=== PATIENT | female | born 1945 | race Caucasian/White ===

== ENCOUNTER 2018-04-23 12:46 | Emergency (ER) | payer OTHER ==
[~2018-04-23] VITALS: Ht 154.9 cm; Wt 63.5 kg
[2018-04-23 13:06] LABS: HEMATOCRIT 39.9 % (37.0-47.0); HEMOGLOBIN 13.6 gm/dL (12.0-15.0); MCH 32.1 pg (26.0-34.0); MCV 94.3 fL (80.0-100.0); RBC 4.23 mil/uL (4.20-5.00); RDW 12.8 % (10.5-14.5); WBC 4.9 thou/uL (4.0-11.0)
[2018-04-23 13:17] LABS: CALCIUM 9.6 mg/dL (8.5-10.1); POTASSIUM 4.6 mmol/L (3.5-5.1)
[2018-04-23 14:15] LABS: URINE BILIRUBIN NEGATIVE (Negative); URINE BLOOD NEGATIVE (Negative); URINE CLARITY CLEAR; URINE COLOR YELLOW; URINE GLUCOSE-RANDOM* NEGATIVE (Negative); URINE KETONES 1+ (Negative); URINE LEUKOCYTES-REFLEX NEGATIVE (Negative); URINE NITRITE-REFLEX NEGATIVE (Negative); URINE PROTEIN (DIPSTICK) 1+ (Negative); URINE SPECIFIC GRAVITY 1.025 (1.005-1.035); URINE UROBILINOGEN 0.2 E.U./dl (0.2-1.0)
[2018-04-23 14:34] LABS: SQUAMOUS 4-10 Moderate /LPF (0-3)
[2018-04-23 14:35] LABS: CRYSTALS None Seen /LPF (None Seen); URINE RBC 0-2 Rare /HPF (0-2); URINE WBC-REFLEX 0-5 Rare /HPF (0-5)
[2018-04-23 14:36] LABS: CASTS None Seen /LPF (None Seen); MUCUS 4-6 Moderate strn/LPF (None Seen)
[2018-04-23 20:10] VITALS: BP 132/59
== END 2018-04-23 20:13 ==
LOC: ER 12:46
PROVIDERS: Emergency Medicine
DX: R50.9 Fever, unspecified (principal); I10 Essential (primary) hypertension; E03.9 Hypothyroidism, unspecified; G20 Parkinson's disease; F02.80 Dementia in other diseases classified elsewhere, unspecified severity, without behavioral disturbance, psychotic disturbance, mood disturbance, and anxiety; Z86.73 Personal history of transient ischemic attack (TIA), and cerebral infarction without residual deficits; W18.39XA Other fall on same level, initial encounter; Y92.89 Other specified places as the place of occurrence of the external cause; Y93.89 Activity, other specified; Y99.8 Other external cause status

== ENCOUNTER 2019-06-04 05:53 | Emergency (ER) | payer OTHER ==
[~2019-06-04] VITALS: Ht 152.4 cm; Wt 59.0 kg
[2019-06-04 06:25] LABS: ABSOLUTE NEUTROPHILS 11.1 thou/uL (1.4-8.2); BASOPHILS 0.2 % (0.0-2.0); EOSINOPHILS 0.1 % (0.0-3.0); HEMATOCRIT 40.2 % (37.0-47.0); HEMOGLOBIN 13.1 gm/dL (12.0-15.0); LYMPHOCYTES 5.6 % (24.0-44.0); MCH 31.6 pg (26.0-34.0); MCHC 32.6 g/dL (28.0-37.0); MCV 97.1 fL (80.0-100.0); PLATELET COUNT 248 thou/uL (150-400); POLYS 91.1 % (36.0-66.0); RBC 4.14 mil/uL (4.20-5.00); RDW 13.2 % (10.5-14.5); WBC 12.2 thou/uL (4.0-11.0)
[2019-06-04 06:34] LABS: CALCIUM 9.8 mg/dL (8.5-10.1); CREATININE 0.7 mg/dL (0.6-1.0); POTASSIUM 3.8 mmol/L (3.5-5.1)
[2019-06-04] MEDS ORDERED: FEVERALL120 MG RECTAL (06:46)
[2019-06-04] MEDS ORDERED: ACIDOPHILUS1 EAC4 PO (06:47)
[2019-06-04] MEDS ORDERED: ACETAMINOPHEN PO (06:49)
[2019-06-04] MEDS ORDERED: ATIVAN0.5 MG PO ×2 (06:50→07:00)
[2019-06-04] MEDS ORDERED: LIPITOR10 MG PO (06:52)
[2019-06-04] MEDS ORDERED: DULCOLAX5 MG PO (06:54)
[2019-06-04] MEDS ORDERED: SINEMET 25-1001 EAC1 PO (06:55)
[2019-06-04] MEDS ORDERED: VITAMIN D31000 UNIT PO (06:56)
[2019-06-04] MEDS ORDERED: COLACE100 MG PO (06:57)
[2019-06-04] MEDS ORDERED: CLONIDINE0.1 PO (06:57)
[2019-06-04] MEDS ORDERED: DULCOLAX10 MG RECTAL (06:58)
[2019-06-04] MEDS ORDERED: COLACE 100 MG100 MG PO (06:58)
[2019-06-04] MEDS ORDERED: LEXAPRO5 MG PO (06:59)
[2019-06-04] MEDS ORDERED: GLYCOLAX119 GM PO (06:59)
[2019-06-04] MEDS ORDERED: OLANZAPINE2.5 MG PO (07:01)
[2019-06-04] MEDS ORDERED: REMERON15 MG PO (07:01)
[2019-06-04] MEDS ORDERED: ROPINIROLE HCL2 MG PO (07:02)
[2019-06-04] MEDS ORDERED: SENNA8.6 MG PO (07:02)
[2019-06-04] MEDS ORDERED: OYSTER SHELL 51 EACH PO (07:02)
[2019-06-04 08:09] LABS: URINE BILIRUBIN NEGATIVE (Negative); URINE BLOOD NEGATIVE (Negative); URINE CLARITY CLEAR; URINE COLOR YELLOW; URINE GLUCOSE-RANDOM* NEGATIVE (Negative); URINE KETONES NEGATIVE (Negative); URINE LEUKOCYTES-REFLEX NEGATIVE (Negative); URINE NITRITE-REFLEX NEGATIVE (Negative); URINE PROTEIN (DIPSTICK) NEGATIVE (Negative); URINE UROBILINOGEN 0.2 E.U./dl (0.2-1.0)
--- NOTE | 2019-06-04 11:59 | EKG ---
[facility] [place] [address] ELECTROCARDIOGRAM REPORT Name: LUCIANA OSHEA Room #: [facility]#: [id number] ������������������ Admission: 06/04/19 ������������������ Attend Phys: Discharge: ������������������ Date of : 49 Report #: [id number] ����������������������������������������������������������������� [id number] THIS REPORT FOR: //name// [facility] ED Test Date: 2019-06-04 Test Time: 06:01:29 Pat Name: LUCIANA OSHEA Department: Room: Gender: F First Aid Instructor: HAYLEY : 1945 Requested By: Audra Marie Order Number: [id number] MD: Catrachito Mooney Measurements Intervals [place] Rate: 57 P: 0 [place]: 126 QRS: -9 QRSD: 111 T: -13 QT: 442 QTc: 431 Interpretive Statements Sinus bradycardia Probable anteroseptal infarct, old Abnrm T, consider ischemia, lateral leads No previous ECG available for comparison Electronically Signed On 06-04-2019 11:59:10 CDT by Catrachito Mooney [email or web address] ��������������������������������������������� <ELECTRONICALLY SIGNED> ���������������������������������������� By: Catrachito Mooney MD, [facility] ��������������������������������������������� 06/04/19 1159 D: 09/600 0 Catrachito Mooney MD, FACC /EPI
[2019-06-04 12:56] VITALS: BP 165/64
== END 2019-06-04 14:09 ==
LOC: ER 05:53
PROVIDERS: Emergency Medicine
DX: S00.83XA Contusion of other part of head, initial encounter (principal); S00.33XA Contusion of nose, initial encounter; S40.012A Contusion of left shoulder, initial encounter; R60.0 Localized edema; I10 Essential (primary) hypertension; E03.9 Hypothyroidism, unspecified; G20 Parkinson's disease; F03.90 Unspecified dementia, unspecified severity, without behavioral disturbance, psychotic disturbance, mood disturbance, and anxiety; Z86.73 Personal history of transient ischemic attack (TIA), and cerebral infarction without residual deficits; Z88.6 Allergy status to analgesic agent; Z88.2 Allergy status to sulfonamides; Z88.8 Allergy status to other drugs, medicaments and biological substances; W18.39XA Other fall on same level, initial encounter; Y93.89 Activity, other specified; Y92.129 Unspecified place in nursing home as the place of occurrence of the external cause; Y99.8 Other external cause status

== ENCOUNTER 2019-09-12 22:26 | Inpatient (IN) | payer OTHER ==
[~2019-09-12] VITALS: Ht 160 cm; Wt 35.4 kg
[~2019-09-12 22:26] MED LIST: ACETAMINOPHEN PO; ACIDOPHILUS1 EAC4 PO; ATIVAN0.5 MG PO; CLONIDINE0.1 PO; COLACE 100 MG100 MG PO; COLACE100 MG PO; DULCOLAX10 MG RECTAL; DULCOLAX5 MG PO; FEVERALL120 MG RECTAL; GLYCOLAX119 GM PO; LEXAPRO5 MG PO; LIPITOR10 MG PO; OLANZAPINE2.5 MG PO; OYSTER SHELL 51 EACH PO; REMERON15 MG PO; ROPINIROLE HCL2 MG PO; SENNA8.6 MG PO; SINEMET 25-1001 EAC1 PO; VITAMIN D31000 UNIT PO
[2019-09-12 22:46] VITALS: BP 128/88
[2019-09-12 23:00] LABS: URINE BILIRUBIN NEGATIVE (Negative); URINE BLOOD NEGATIVE (Negative); URINE CLARITY SL CLOUDY; URINE COLOR YELLOW; URINE GLUCOSE-RANDOM* NEGATIVE (Negative); URINE KETONES NEGATIVE (Negative); URINE PROTEIN (DIPSTICK) NEGATIVE (Negative); URINE UROBILINOGEN 0.2 E.U./dl (0.2-1.0)
[2019-09-12 23:03] LABS: URINE LEUKOCYTES-REFLEX 1+ (Negative); URINE NITRITE-REFLEX POSITIVE (Negative)
[2019-09-12 23:18] LABS: SQUAMOUS 0-3 Few /LPF (0-3); URINE RBC 3-10 Few /HPF (0-2)
[2019-09-12 23:19] LABS: CALCIUM OXALATE 0-3 Few /LPF (None Seen); CASTS None Seen /LPF (None Seen); MUCUS 0-3 Light strn/LPF (None Seen)
[2019-09-13 00:02] LABS: BASOPHILS 0.4 % (0.0-2.0); EOSINOPHILS 0.2 % (0.0-3.0); HEMATOCRIT 38.8 % (37.0-47.0); HEMOGLOBIN 12.4 gm/dL (12.0-15.0); LYMPHOCYTES 8.2 % (24.0-44.0); MCH 32.6 pg (26.0-34.0); PLATELET COUNT 213 thou/uL (150-400); POLYS 87.2 % (36.0-66.0); RBC 3.81 mil/uL (4.20-5.00); RDW 13.8 % (10.5-14.5); WBC 10.4 thou/uL (4.0-11.0)
[2019-09-13 00:12] LABS: ANION GAP 7 mmol/L (7-16); BUN 23 mg/dL (7-18); CALCIUM 8.9 mg/dL (8.5-10.1); CHLORIDE 109 mmol/L (98-107); CO2 26 mmol/L (21-32); CREATININE 0.4 mg/dL (0.6-1.0); GLUCOSE 131 mg/dL (74-106); POTASSIUM 5.1 mmol/L (3.5-5.1); SODIUM 142 mmol/L (136-145)
[2019-09-13 00:21] LABS: MAGNESIUM 1.8 mg/dL (1.8-2.4); TROPONIN-I <0.06 ng/mL (<0.06)
[2019-09-13 03:15] VITALS: BP 167/80
--- NOTE | 2019-09-13 03:16 | NUR ---
HANDOFF REPORT SENT TO 3[facility]
[2019-09-13 03:40] VITALS: BP 167/80
--- NOTE | 2019-09-13 05:46 | NUR ---
Patient arrived at 3W around 0430. Patient is currently non-communicative and she did not arrive with family/friends/DPOA. Admission documetation completed as best as possible. Patient is wearing SCDs; fall precautions are in place. Patient was cleaned and an external female catheter was placed. The patient has two open wounds: one on her sacral area and one on her left lower back. The wounds were photographed and documented. Ptient's HR dipped into the 40s frequently, running from the 40s to the 70s. Nursing will continue to monitor.
[2019-09-13 07:22] VITALS: BP 173/75
--- NOTE | 2019-09-13 07:40 | NUR ---
chart review, pt in bed eye closed, open mouth breathing. per chart review, pt lives at [facility]. will follow up with [facility] and vickie bee contact [phone].
--- NOTE | 2019-09-13 08:58 | NUR ---
WOUND CARE CONSULT pt drowsy, but cooperative, sacral stage 2 pressure wound, periwound area david, scant pinkish drainage, open ulcer r buttocks scant pinkish drainage, photos taken earlier this am, foam drsg in place, see process intervention for details RECOMMENDATIONS will order low air loss pump for bed, zguard to both wounds daily, cover w/ border foam drsg daily and prn, public health staff nurse informed
--- NOTE | 2019-09-13 10:06 | EKG ---
[place] [address] [address] [facility] [place] [address] ELECTROCARDIOGRAM REPORT Name: LUCIANA OSHEA Laz Room #: 351-P ADM IN M.R.#: [id number] Admission: 09/13/19 Attend Phys: Jessica Bruce MD Discharge: Date of : 49 Report #: [id number] THIS REPORT FOR: //name// [facility] ED Test Date: 2019-09-12 Test Time: 22:52:15 Pat Name: LUCIANA OSHEA Department: Room: [facility] Gender: F Deaf Teacher: [facility] : 1945 Requested By: Reji Barrera Order Number: [id number] MD: Catrachito Mooney Measurements Intervals [place] Rate: 68 P: PA: QRS: -5 QRSD: 94 T: -11 QT: 400 QTc: 426 Interpretive Statements Sinus rhythm Abnormal R-wave progression, early transition Nonspecific ST and T wave abnormality Compared to ECG 06/04/2019 06:01:29 Nonspecific change in the ST and T-wave segments Electronically Signed On 09-13-2019 10:05:54 BRUSH OPERATOR by Catrachito Mooney [email or web address] <ELECTRONICALLY SIGNED> By: Catrachito Mooney MD, [facility] 09/13/19 1005 51 51 Catrachito Mooney MD, [facility] /EPI
--- NOTE | 2019-09-13 15:45 | NUR ---
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 ROOM AIR, POSITIONED FROM SIDE TO SIDE TO ALLOW PT TO TOLERATE HER OWN SALIVA. INCONTINENT URINE WITH USE OF EXTERNAL FEMALE CATHETER. DR. BARRERA PRESENT TODAY TO SEE PT AND UPDATE ORDERS. PT NOT PROGRESSING.
--- NOTE | 2019-09-13 15:46 | NUR ---
REPORT GIVEN TO MADONNA MCKEON. PT TRANSFERRED IN BED TO MED/[facility]UR[facility] RM #[id number].
[2019-09-13 18:12] VITALS: BP 156/95
[2019-09-13 19:20] VITALS: BP 155/67
--- NOTE | 2019-09-13 19:33 | NUR ---
Pt was transferred from 3W approx 1600. Pt nonverbal. Q2h turn. Incontinent of B&B. Per report, pt unable to swallow. Does not appear in any pain. Opens eyes with stimuli. Fall precautions in place. Report given to alma PEACOCK.
[2019-09-14 02:30] VITALS: BP 146/66
--- NOTE | 2019-09-14 02:38 | NUR ---
ASSESSMENT COMPLETED.PT ALERT,IN NO DISTRESS.PT ABLE TO ANSWER YES OR NO ANSWER.PT WAS ABLE TO EAT SOME PUDDING AND THIN LIQUIDS BUT OBSERVED PT COUGHING AFTER DRINKING THE THIN LIQUIDS SO,SHE WAS OFFERED THICKNED AND SHE DID WELL WITH IT.INCONTINENT OF B&B,PERICARE DONE WITH EACH CHANGE. PT RESTING ON HER BED AT THIS TIME.FALL PREACUTIONS IN PLACE.CALL LIGHT WITHIN REACH.
[2019-09-14 09:28] VITALS: BP 157/71
--- NOTE | 2019-09-14 10:05 | NUR ---
PT CARE ASSUMED AT 0700. PT IS VERY LETHARGIC. IV PATENT WITH NO REDNESS OR EDEMA. IV IS STAT LOCKED. SPEECH THERAPY IN PLACE FOR EVALUATION. PT IS Q2 TURNS. PT IS NON VERBAL. AIRLOSS PUMP IN PLACE. PT TAKES MEDS WHOLE WITH PUDDING. AND HEAD ALL TH EWAY ELEVATED. PT COMES FROM [facility]. MD INFORMED OF URINE CULTURE RESULTS AND BP OF 157/71 AFTER RECEIVING CLONIDINE DOSAGE. AWAITING FURTHER ORDERS. BED IS IN LOW POSITION, LOCKED WITH BED ALARM IN PLACE. CALL LIGHT IN REACH.
[2019-09-14 12:12] VITALS: BP 157/71
[2019-09-14 17:39] VITALS: BP 141/63
[2019-09-14 20:01] VITALS: BP 152/67
--- NOTE | 2019-09-15 02:52 | NUR ---
ASSUMED PT CARE AT 1900. OXYGEN SAT AT 87%, PUT ON 2 LITERS NC, WILL CONTINUE TO MONITOR. FEMALE EXTERNAL CATHETER PLACED. HAD TROUBLE GETTING PT TO TAKE PILLS, DOES WELL CRUSHED WITH APPLESAUCE, BUT REQUIRES A LOT OF TIME TO GET HER TO OPEN HER MOUTH. SLEEPING MOST OF SHIFT, OCCASIONALLY OPENS EYES WHEN INTERVENTIONS ARE BEING DONE.
[2019-09-15 04:29] VITALS: BP 149/80
[2019-09-15 07:20] VITALS: BP 161/72
[2019-09-15 10:07] VITALS: BP 145/74
--- NOTE | 2019-09-15 10:21 | H ---
[facility] [place] [address] HISTORY AND PHYSICAL Name: LUCIANA OSHEA Room #: 434-P ADM IN M.R.#: [id number] Admission: 09/13/19 Attend Phys: Jessica Bruce MD Discharge: Date of : 49 Report #: [id number] THIS REPORT FOR: //name// CC: Jessica Bruce DATE OF SERVICE: 09/13/2019 ATTENDING PHYSICIAN: Dr. Bruce. CHIEF COMPLAINT: Confusion. HISTORY OF PRESENT ILLNESS: The patient is a 74-year-old female with Parkinson's disease, sent to the ER from [facility] the [facility] for evaluation of altered mental status. She said she was choking on her own saliva and marginally alert and less responsive than normal at the facility, states that her blood pressure was high and she was sent to the ER. Evaluation so far suggested urinary tract infection. PAST MEDICAL HISTORY: Hypertension, Parkinson's disease, hypothyroidism, history of stroke, senile dementia, history of psychosis with delusions. PAST SURGICAL HISTORY: Unknown. FAMILY HISTORY: Unknown. SOCIAL HISTORY: She has been living at [facility] for a number of years. No chronic alcohol or tobacco use. ALLERGIES: ASPIRIN, EPHEDRINE, IBUPROFEN, CLARITIN, PSEUDOEPHEDRINE, SULFA, TRIMETHOPRIM. MEDICATIONS: Tylenol, acidophilus, Ativan, Lipitor, Sinemet, vitamin D, clonidine, Colace, Dulcolax, MiraLax, Ativan, mirtazapine, olanzapine, calcium plus D, ropinirole, Senokot. REVIEW OF SYSTEMS: She is unable to give a review. OBJECTIVE: VITAL SIGNS: Temperature 36.3, pulse 59, respirations 20, blood pressure 173/75, O2 sat 99% on room air. GENERAL: She is alert with her eyes open, but not verbally responsive. HEAD AND NECK: Unremarkable. LUNGS: Clear. HEART: Regular. ABDOMEN: Soft. Normoactive bowel sounds. No rebound or guarding. EXTREMITIES: No cyanosis, clubbing or edema. She has muscle atrophy throughout [facility] [place] [address] HISTORY AND PHYSICAL Name: LUCIANA OSHEA Laz Room #: 434-P [facility] IN .R.#: [id number] Admission: 09/13/19 Attend Phys: Jessica Bruce MD Discharge: Date of : 49 Report #: [id number] and signs of cachexia. NEUROLOGIC: She has rigid slow movements with a tremor of her lower jaw and hands. LABORATORY DATA: CBC and CMP were unremarkable. Urinalysis was positive for nitrite, white cells, bacteria and cultures pending. CT head negative. Chest x-ray negative. ASSESSMENT: 1. Urinary tract infection. 2. Metabolic encephalopathy due to the above. 3. Severe Parkinson's disease. 4. Hypertension. 5. Senile dementia. 6. Cerebrovascular disease with history of stroke. PLAN: I will try to minimize her home medications and hold sedating meds for now due to her encephalopathy. Antibiotics were ordered and we will order some supportive IV fluids. We will clarify her code status with her facility. <ELECTRONICALLY SIGNED> By: Varghese Chong MD 09/15/19 1021 1256 1344 Varghese Chong MD /nt
--- NOTE | 2019-09-15 10:45 | NUR ---
PT CARE ASSUMED AT 0700. PT HARD TO ARROUSE WITH O2 SAT 81% AND R:20 WITH A TEMP OF 100.2. DR. BARRERA PAGED FOR ABNORMAL VITALS. WHILE WAITING ON A RESPONS PT VITALS CHANGED TO R:44 AND O2 NEEDED TO BE ADJUSTED TO 9L JUST TO GET PT O2 TO 90% TEMP IS 101.[address] BARRERA AGAIN AND NEW ORDERES WERE PUT IN.
[2019-09-15 11:09] LABS: BE(vivo) 2.8 mmol/L (-2 to +3); HCO3 25.8 mmol/L (22.0-26.0); PCO2 34.5 mmHg (35.0-45.0); PO2 89.9 mmHg (80.0-100.0); pH 7.492 (7.360-7.450); sO2 97.5 % (92.0-98.0)
[2019-09-15 11:11] LABS: HEMATOCRIT 38.1 % (37.0-47.0); HEMOGLOBIN 12.4 gm/dL (12.0-15.0); MCH 32.1 pg (26.0-34.0); MCHC 32.5 g/dL (28.0-37.0); MCV 98.6 fL (80.0-100.0); RBC 3.87 mil/uL (4.20-5.00); RDW 13.4 % (10.5-14.5); WBC 14.5 thou/uL (4.0-11.0)
[2019-09-15 11:12] VITALS: BP 149/74
[2019-09-15 11:30] LABS: CREATININE 0.6 mg/dL (0.6-1.0); POTASSIUM 3.6 mmol/L (3.5-5.1)
[2019-09-15 19:37] VITALS: BP 151/57
[2019-09-16 00:14] VITALS: BP 151/88
--- NOTE | 2019-09-16 02:54 | NUR ---
ASSUMED PT CARE AT 1900. PT UNRESPONSIVE TO STIMULI. RANDOMLY OPENS EYES FOR SMALL PERIODS OF TIME. TRIED TO GIVE BP MEDICAITON CRUSHED IN TEA, BELIEVE SHE IS JUST POCKETING IN HER CHEEKS/ALLOWING IT TO SIT IN HER MOUTH, THEN SUCTIONED WHEN RT COMES. HELD OTHER PO MEDS DUE TO FEAR OF ASPIRATION. RAN TEMP ALL EVENING, SUPPOSITORIES GIVEN. ORAL CARE AND WOUND CARE PROVIDED. WET COUGH OBSERVED. PT SLEEPING AT ALL TIMES.
[2019-09-16 03:32] VITALS: BP 169/85
[2019-09-16 07:45] VITALS: BP 175/79
--- NOTE | 2019-09-16 10:03 | NUR ---
WOUND CARE F/U pt unresponsive, sacral wound healing, almost closed, r buttock wound healing, closed, assessed wounds w/ event staff Kassie, see process interventions for details RECOMMENDATIONS CONT CURRENT POC W/ ZGUARD DAILY, BORDER FOAM DRSG, CONT LALP TO BED, REPOSITION Q 2 HOURS, OFF LOADING, FENCE MANUFACTURE SUPERVISOR AWARE
--- NOTE | 2019-09-16 10:20 | NUR ---
PT CARE ASSUMED AT 0700. Q2 TURNS. IV IS PATENT, WITH NO REDNESS OR SWELLING. PT IS ON 6L WITH BUBBLER AND SAT 88%. PT HAS BEEN HAVING FEVERES THAT I HAVE BEEN TREATING PRN WITH TYLENOL SUPPOSITORY WHICH BRINGS THE TEMP TEMPORARLY DOWN. PT STRUGGLES WITH ASPIRATION WHEN TRYING TO GIVE PO MEDS, HYDRATION, AND FEEDING. AD HAS BEEN FOUND AND IS ATTACHED TO PT FILE DRN IS CURRENT AND NOT REVOCED. DPOA IS A GOOD FRIEND AT [facility]. BED IS IN LOW POSITION, LOCKED, WITH BED ALARM IN PLACE. CALL LIGHT IN REACH. IV ANTIBIOTICS INFUSING
[2019-09-16 11:35] VITALS: BP 168/74
[2019-09-16 14:33] VITALS: BP 150/62
[2019-09-16] MEDS ORDERED: ACETAMINOPHEN650 MG RECTAL (14:59)
--- NOTE | 2019-09-16 15:42 | NUR ---
Received order from physician to arrange d/c back to [facility] today. Called [facility] and spoke with nurse on 3rd floor. Faxed orders to facility. Chart copied. Called [facility] and they will provide stretcher transport at [phone]. No other needs identified. [facility] [phone]; fax [phone] [facility] [phone]
== END 2019-09-16 19:42 | DRG 177 ==
LOC: ER 22:26 → 3W 09-13 02:59 → EROBS 09-13 02:59 → 3W 09-13 03:40 → 4S 09-13 14:52
PROVIDERS: Emergency Medicine; Internal Medicine Geriatric Medicine; ADMIT Internal Medicine
DX: J69.0 Pneumonitis due to inhalation of food and vomit (principal); G93.41 Metabolic encephalopathy; N39.0 Urinary tract infection, site not specified; E44.0 Moderate protein-calorie malnutrition; Z68.1 Body mass index [BMI] 19.9 or less, adult; R41.0 Disorientation, unspecified; G20 Parkinson's disease; R13.10 Dysphagia, unspecified; Z66 Do not resuscitate; I10 Essential (primary) hypertension; E03.9 Hypothyroidism, unspecified; F03.90 Unspecified dementia, unspecified severity, without behavioral disturbance, psychotic disturbance, mood disturbance, and anxiety; F22 Delusional disorders; Z79.899 Other long term (current) drug therapy; Z86.73 Personal history of transient ischemic attack (TIA), and cerebral infarction without residual deficits; Z88.1 Allergy status to other antibiotic agents; Z88.8 Allergy status to other drugs, medicaments and biological substances
CPT/HCPCS: 10102; 10195